=== PATIENT | male | born 1955 | race American Indian/Alaskan Native ===

== ENCOUNTER 2025-03-31 05:41 | Emergency (ER) | payer MEDICARE, MEDICAID, SELFPAY ==
[2025-03-31 05:42] VITALS: BP 171/78; PULSE 79; RESP 18; TEMP 36.9; O2SAT 98
[2025-03-31 05:43] VITALS: PULSE 90; RESP 16; O2SAT 97; BMI 46.0
[2025-03-31 05:53] VITALS: BP 178/89
--- NOTE | 2025-03-31 06:24 | PC.NURSE ---
PT WANTED TO LEAVE AMA. PT STATES THAT THEY FELL BETTER . PT EXPLAINS IMPROVEMENT AFTER EMS INTERVENTIONS OF MEDICATION. THIS RN ASKED PT TO WAIT UNTIL PROVIDER SPEAKS TO PT. PT DENIED SPEAKING TO PROVIDER AND WANTED TO LEAVE NOW. THIS RN EXXPLAINED THE ASSOCIATED RISKS OF CHEST PAIN SUCH HEART ATTACK. THE PT WAS A&O X 4 AND WAS AWARE OF RISKS
--- NOTE | 2025-03-31 06:30 | PC.NURSE ---
PT LEFT BEFORE MEDICAL SCREENING
== END 2025-03-31 07:38 | disposition left against medical advice (07) ==
LOC: SERX 07:26
PROVIDERS: Emergency Provider Emergency Medicine
DX: Z53.29 Procedure and treatment not carried out because of patient's decision for other reasons (principal); I45.10 Unspecified right bundle-branch block
CPT/HCPCS: 93005; 99283